=== PATIENT | male | born 1960 | race Caucasian/White ===

== ENCOUNTER 2019-08-03 18:19 | Emergency (ER) | payer BC ==
[2019-08-03] MEDS ORDERED: LIDOCAINE 1% INJ 10MG/ML (20 ML MDV) SQ ONE (18:46)
[2019-08-03] MEDS ORDERED: DIPH,PERTUS(ACELL)TETVAC-LF 0.5 ML VIAL IM ONE (18:47)
--- NOTE | 2019-08-03 19:02 | ED ---
Wound/Laceration HPI - General Chief Complaint: Wound/Laceration Stated Complaint: head lac Time Seen by Provider: 08/03/19 18:37 Source: patient Mode of arrival: ambulatory Limitations: no limitations - History of Present Illness Initial Comments: Patient is 58-year-old male presenting to emergency Department with a chief complaint of a laceration. Patient reports she was working on his garage door with the Spring under tension, when it suddenly released and cause a projectile to fly into his head. Patient reports a laceration on the right side of the forehead as well as the right temporal region. Denies any loss of consciousness and is not on blood thinners. Does report mild pain at the site of injury but nothing of significance. Is not aware of his tetanus status. Denies any visual changes, sided weakness or paresthesias. - Related Data Allergies Allergy/AdvReac Type Severity Reaction Status Date / Time Penicillins Allergy Unknown Verified 08/03/19 18:26 Review of Systems ROS Statement: Those systems with pertinent positive or pertinent negative responses have been documented in the HPI. ROS Other: All systems not noted in ROS Statement are negative. Past Medical History Past Medical History: Diabetes Mellitus, Hypertension History of Any Multi-Drug Resistant Organisms: None Reported Past Surgical History: No Surgical Hx Reported Past Psychological History: No Psychological Hx Reported Smoking Status: Never smoker Past Alcohol Use History: Occasional Past Drug Use History: None Reported General Exam Limitations: no limitations General appearance: alert, in no apparent distress Head exam: Present: normocephalic, normal inspection. Absent: atraumatic (Laceration noted on the right side of the forehead measuring approximately 3 cm in diameter. Also a laceration on the right temporal region with flap formation measuring approximately 5 cm.), other (Negative Garcia sign, raccoon eyes, hemotympanum.) Eye exam: Present: normal appearance, PERRL, EOMI Pupils: Present: normal accommodation ENT exam: Present: normal exam, normal oropharynx, mucous membranes moist Neck exam: Present: normal inspection, full ROM Respiratory exam: Present: normal lung sounds bilaterally Cardiovascular Exam: Present: regular rate, normal rhythm, normal heart sounds Extremities exam: Present: normal inspection, full ROM Back exam: Present: normal inspection Neurological exam: Present: alert, oriented X3 Psychiatric exam: Present: normal affect, normal mood Skin exam: Present: warm, dry, intact, normal color Course Vital Signs 08/03/19 18:24 Temperature 98.0 F Pulse Rate 97 Respiratory 18 Rate Blood Pressure 148/90 O2 Sat by Pulse 97 Oximetry Procedures - Laceration Laceration #1 Consent Obtained: verbal consent Indication: laceration Site: scalp Size (cm): 3 Description: linear, clean Depth: simple, single layer Sedation/Analgesia: none Anesthetic Used: lidocaine 1% Anesthesia Technique: local infiltration Amount (mls): 2 Pre-repair: irrigated extensively Type of Sutures: nylon Size of Sutures: 4-0 Number of Sutures: 3 Technique: simple, interrupted Complications: pain Patient Tolerated Procedure: well, no complications Laceration #2 Consent Obtained: verbal consent Indication: laceration Site: scalp Size (cm): 5 Description: flap, clean Depth: simple, single layer Anesthetic Used: lidocaine 1% Anesthesia Technique: local infiltration Amount (mls): 3 Pre-repair: irrigated extensively, deep structures intact Type of Sutures: nylon Size of Sutures: 4-0 Number of Sutures: 5 Technique: simple, interrupted Complications: pain Patient Tolerated Procedure: well, no complications Medical Decision Making - Medical Decision Making Patient is a 58-year-old male presenting to the emergency department with a chief complaint of a laceration. Exam patient has a laceration on the right frontal region as well as the right temporal region. CT of brain and C-spine is unremarkable. Laceration site was repaired with 3 sutures in the forehead and 5 on the temporal region. Tetanus vaccination ministered. Advised to return to emergency department in 10-14 days for suture removal. Return parameters thoroughly discussed with patient is understanding and agreeable. Case discussed with physician. Disposition Clinical Impression: Laceration, Head injury Disposition: HOME SELF-CARE Condition: Stable Instructions (If sedation given, give patient instructions): Care For Your Stitches (DC), Laceration (DC) Additional Instructions: Return to emergency department in 10-14 days for suture removal. Follow wound care instructions. Is patient prescribed a controlled substance at d/c from ED?: No Referrals: Wes Brandon DO [Primary Care Provider] - 1-2 days Time of Disposition: 19:47
--- NOTE | 2019-08-03 19:24 | CT ---
EXAMINATION TYPE: CT brain sal wo con DATE OF EXAM: 08/03/2019 COMPARISON: None HISTORY: 58-year-old male with pain and Head laceration after injury CT DLP: 1674.3 mGycm Automated exposure control for dose reduction was used. Technique: Examination of the head was done in axial plane without intravenous contrast. Coronal and sagittal reconstructions performed. CT of the cervical spine was obtained in axial plane without intravenous injection of contrast mater ial. Coronal and sagittal reformatted images were obtained from the axial views for evaluation of f ractures, spinal alignment and canal. FINDINGS: Head: There is no evidence of acute intracranial hemorrhage, acute ischemic changes, mass, mass-effect, or extra-axial fluid collection. There is no effacement of cerebral sulci or basal subarachnoid cister ns. There is no hydrocephalus. There is no midline shift. Graham-white matter distinction is preserv ed. There are right frontal and right temporal scalp lacerations. No underlying calvarial fracture. Rightward nasal septal deviation. Paranasal sinuses and mastoid air cells are well pneumatized. Visua lized orbits and globes are intact. Cervical spine: No craniocervical junction abnormality, predental space widening, or prevertebral soft tissue swellin g. No acute fracture of the cervical spine. Straightening of the normal cervical doses of preserved alignment. Assessment of the spinal canal from C4 to C5 and below is limited due to artifact from patient's shou lders. Sagittal and coronal reformatted images confirm above findings. COMBINED IMPRESSION: 1. Lacerations along the right frontal and right temporal scalp. No acute intracranial abnormality se en. 2. No acute fracture or malalignment of the cervical spine.
[2019-08-03 20:09] VITALS: BP 128/88; PULSE 85; RESP 19; TEMP 98.9
== END 2019-08-03 20:06 | disposition home or self-care (01) ==
LOC: EC 18:19
DX: S01.81XA Laceration without foreign body of other part of head, initial encounter (principal); Z23 Encounter for immunization; Z88.0 Allergy status to penicillin; W20.8XXA Other cause of strike by thrown, projected or falling object, initial encounter; Y92.89 Other specified places as the place of occurrence of the external cause; Y93.89 Activity, other specified
CPT/HCPCS: 72125; 70450; 90715; 99283; 12015; 90471; J2001

== ENCOUNTER 2023-01-17 19:35 | Outpatient (CLI) | payer BC | END 2023-01-18 05:45 | disposition home or self-care (01) | LOC: 3 N SLEEP 19:35 | PROVIDERS: ATTEND Internal Medicine Critical Care Medicine | DX: G47.10 Hypersomnia, unspecified (principal); Z88.0 Allergy status to penicillin | CPT/HCPCS: 95810 ==

== ENCOUNTER 2023-03-19 20:02 | Outpatient (CLI) | payer BC ==
--- NOTE | 2023-03-25 00:55 | SLS ---
SLEEP STUDY This is a CPAP titration report. HISTORY OF PRESENT ILLNESS: This patient has been diagnosed having severe CURTIS and the patient is coming in for a CPAP titration. He has diabetes and hypertension. He has chronic hypersomnia. PERTINENT PHYSICAL FINDINGS: Height is 6 feet 2 inches, weight is 204, BMI 26.2. TECHNICAL DESCRIPTION: The sleep evaluation of the patient consisted of clinical polysomnography, nocturnal respiratory battery, left and right anterior tibialis surface electromyography. The standard montage for the clinical polysomnography included the EEG, EOG, EMG, and EKG. Respiratory battery included measurements of nasal/buccal airflow, thoracic, and/or abdominal effort and intercostal surface EMG. Nocturnal oxyhemoglobin saturations were obtained by finger oximetry. Digital video and audio monitoring were done throughout the entire night to check or parasomnias. Step-rehman titration with positive airway pressure was utilized during the study to control the respiratory events. SLEEP ARCHITECTURE: Total time in bed was 433.0 minutes. Total sleep time was 415.0 minutes and sleep efficiency was 95.8%. Latency to sleep onset was 13 minutes. Latency to REM sleep was 70 minutes and the patient's sleep architecture was characterized by 0.8% stage I, 69.5% stage II, 0% stage III, 29.8% REM sleep. The wake after sleep onset time was only 4.5 minutes. There was significant improvement in the patient's sleep efficiency while on CPAP therapy. CPAP TITRATION SUMMARY: The CPAP titration was started initially at a pressure of 5 cm of water and the pressure was gradually increased by increments of 1 cm to reach a maximum pressure of 11 cm of water. Careful review of the CPAP titration was done taking into account sleep stage and body position. Based on my review, the patient had successful titration. All sleep stages were encountered. The patient was studied in various body positions. Pressure of 10 cm of water was felt to be the most appropriate in treating this patient's obstructive sleep apnea at that level of pressure. There was no nocturnal oxygen desaturation and the patient had adequate sleep efficiency and adequate tolerability. OXYGENATION ANALYSIS: The patient had no desaturations during the CPAP titration. PERIODIC LIMB MOVEMENT SUMMARY: The patient had a total of 19 periodic limb movements with an index of 2.7. No significant arousals related to periodic limb movement activity. CARDIAC SUMMARY: Average heart rate was 73, minimum heart rate was 70, maximum heart rate was 77. ASSESSMENT: 1. Severe symptomatic CURTIS with an AHI of 47.3, associated with poor sleep efficiency. The patient underwent excellent CPAP titration that was quite successful. 2. Chronic hypersomnia. 3. Diabetes mellitus type 2. 4. Hypertension. PLAN: Initiate CPAP therapy at a pressure of 10 cm of water along with C-flex of 3. The patient will be provided the appropriate mask interface and his situation will be given a medium-size AirFit F20 full-face mask. The C-flex of 3 will be added. Will apply 30 minutes of REM time and the patient will see me back in 30 to 90 days after initiating CPAP therapy to assess his clinical response and tolerability. MMODL / IJN: [id number] /
== END 2023-03-20 05:45 | disposition home or self-care (01) ==
LOC: 3 N SLEEP 20:02
PROVIDERS: ATTEND Internal Medicine Critical Care Medicine
DX: G47.33 Obstructive sleep apnea (adult) (pediatric) (principal); G47.10 Hypersomnia, unspecified; E11.9 Type 2 diabetes mellitus without complications; I10 Essential (primary) hypertension; G47.52 REM sleep behavior disorder; Z88.0 Allergy status to penicillin
CPT/HCPCS: 95811